=== PATIENT | female | born 1930 | race Caucasian/White ===

== ENCOUNTER 2018-10-17 17:45 | Inpatient (IN) ==
[2018-10-18] MEDS ORDERED: Naloxone 0.4 MG/ML INJ IVP PRN (00:35)
[2018-10-18] MEDS ORDERED: 0.9 % Sodium Chloride 1,000 ML IVC SCH (00:45)
--- NOTE | 2018-10-18 01:23 | Internal Med History&Physical ---
Date of Encounter: 10/18/18 Time of Encounter: 01:06 Internal Medicine - H&P: HPI Chief complaint: AMS History of present illness: Ms. Stevens is a 88 year old female with a history of degenerative disc disease status post 5 lower back surgeries, hypertension, mitral valve prolapse, osteoarthritis, asthma, lumbar spondylosis, and worsening dementia who was initially taken to [facility] by family due to cough and concern for pneumonia. Workup at [place] revealed a white blood cell count of 1.9 on elevated troponin of 0.09 and BNP of 163. Chest x-ray showed bilateral small pleural effusions and bilateral airspace disease right greater than left. EKG was performed which shows no T-wave or ST abnormalities. The EKG did read as atrial fibrillation, however upon my review there are distinct P waves noted. Patient was given Rocephin and azithromycin. . CT scan of the head was performed which showed no acute intracranial abnormalities. Patient was transferred here for further evaluation. On my assessment patient was hemodynamically stable. She had a low-grade fever 100.2. Given the patient's dementia I was unable to obtain any history from her. However patient clinically does not look septic. Past Med Surg Social Fam HX - Past Medical History Medical history: dementia, hypertension, other Additional medical history: OSTEOARTHRITIS Psychiatric history: no psych history - Past Surgical History Surgical History: hysterectomy, orthopedic, other Additional surgical history: BACK SURGERY. RIGHT KNEE REPLACEMENT - Social History Smoking Status: Never smoker Smokeless Tobacco Status: No Alcohol use: none Drug use: none Internal Medicine - H&P: Meds Acetaminophen [Tylenol] 500 mg PO Q6HR PRN 12/27/15 [History] Cholecalciferol (D-3) [Vitamin D] 1,000 unit PO DAILY 12/27/15 [History] Ferrous Sulfate 65 mg PO DAILY 12/27/15 [History] Furosemide [Lasix] 40 mg PO DAILY 12/27/15 [History] Glucosamn/Cond[place]n/C/Mn/[place] [[facility]vs Glucosamine Chondroitin Tb] 1 tab PO DAILY 12/27/15 [History] Montelukast [Singulair] 10 mg PO DAILY 12/27/15 [History] Mv-Min/FA/Vit K/Lycop/Lut/Zeax [Ocuvite Eye + Multi Tablet] 1 tab PO DAILY 12/27/15 [History] Metoprolol [Lopressor] 25 mg PO BID 02/25/18 [History] Tizanidine HCl [Zanaflex] 2 mg PO TID 02/25/18 [History] amLODIPine [Norvasc] 2.5 mg PO DAILY 02/25/18 [History] Cyanocobalamin (Vitamin B-12) [Vitamin B12] 1,000 mcg PO DAILY #30 tab 05/18/18 [Rx] Folic Acid 1 mg PO DAILY #30 tablet 05/18/18 [Rx] Memantine [Namenda] 5 mg PO HS 07/30/18 [History] Ascorbic Acid [Vitamin C] 1,000 mg PO DAILY 10/16/18 [History] Tramadol HCl [Ultram] 50 mg PO BID PRN 10/16/18 [History] Amoxicillin/Clavulanate [Augmentin] 875 mg PO BIDWM #20 tablet 10/17/18 [Rx] Allergy/AdvReac Type Severity Reaction Status Date / Time aspirin Allergy Rash Verified 10/17/18 15:22 codeine Allergy See Verified 10/17/18 17:38 Comments Sulfa (Sulfonamide Allergy See Verified 10/17/18 15:22 Antibiotics) Comments All Systems PM: A 10-system review of systems was performed and is negative for pertinent findings except as documented above in the HPI. - Constitutional Constitutional: no chills, no fever(s), no night sweats - EENT Eyes: no change in vision, no discharge, no pain, no photophobia Ears: no ear discharge, no ear pain, no tinnitus Nose, mouth and throat: no dysphagia, no nasal discharge, no neck pain, no sore throat - Cardiovascular Cardiovascular ROS IM: no chest pain, no diaphoresis, no dyspnea, no lightheadedness, no palpitations, no syncope - Respiratory Respiratory: no cough, no dyspnea, no wheezing, no excessive phlegm production - Gastrointestinal Gastrointestinal: no abdominal pain, no diarrhea, no hematemesis, no hematochezia, no melena, no nausea, no vomiting - Genitourinary Genitourinary: no change in urinary stream, no dysuria, no flank pain, no hematuria - Musculoskeletal Musculoskeletal ROS IM: no numbness, no tingling - Integumentary Integumentary IM: no rash, no unusual bruising - Neurological Neurological ROS: no confusion, no convulsions, no focal weakness, no numbness, no tingling, no tremor(s) - Hematologic/Lymphatic Hematologic/Lymphatic: no easy bruising - Constitutional Vitals: Temp Pulse Resp BP Pulse Ox 100.2 F H 83 15 117/67 93 10/17/18 22:36 10/17/18 22:36 10/17/18 22:36 10/17/18 22:36 10/17/18 22:36 Exam: General: Alert and oriented 1 Skin:Normal color, no rash, no lesions. HEENT:EOM, pupils equal, round and reactive. Cardiovascular:Normal S1 & S2, no rubs, murmurs or gallops. No JVD. Pulse regular. Lungs:Normal breath sounds, no wheezes or crackles. Abdomen:Soft, non-tender, no rigidity. Extremities:No deformity, no edema or tenderness, no joint swelling or clubbing. Neurological:Normal cognition and motor skills. Pulses:Carotid and radial pulses normal +2. Rest of the physical exam is non contributory Internal Med - H&P Results - Labs CBC & Chem 7: 10/18/18 02:11 10/18/18 02:11 - Assessment and Plan (1) Pneumonia Current Visit: No Status: Acute Assessment and plan: Patient presenting with cough concerning for pneumonia. Found to be leukopenic with a white count of 1.9. Chest x-ray shows small bilateral pleural effusions and bibasilar airspace disease right greater than left. Patient received Rocephin and azithromycin prior to transfer. Clinically patient does not look septic or in any respiratory distress. -Continue O2 support -Continue with antibiotics for community acquired pneumonia -Follow-up blood cultures and urine antigens Qualifiers: Pneumonia type: due to unspecified organism Lung location: lower lobe of lung Qualified Code(s): J18.1 - Lobar pneumonia, unspecified organism (2) Elevated troponin I level Current Visit: No Status: Acute Assessment and plan: Elevated troponin of 0.09. No reports of chest pain. Review of EKG shows atrial fibrillation with a rate of 89, however, distinct P waves are present. No T-wave or ST abnormalities. Possibly demand ischemia in the setting of pneumonia. -Telemetry -Trend troponin -Consider echocardiogram (3) Anemia Current Visit: No Status: Acute Assessment and plan: Normocytic anemia. Appears to be chronic and at baseline. We will monitor for now. Qualifiers: Chronic kidney disease stage: unspecified stage Qualified Code(s): N18.9 - Chronic kidney disease, unspecified; D63.1 - Anemia in chronic kidney disease (4) Leukopenia Current Visit: Yes Status: Acute Assessment and plan: Patient presenting with a leukopenia of 1.9 with absolute neutrophil count of 152. Her monocytes are 66.5%. Remaining lines or relatively stable. Patient is followed by oncology for her anemia and is being worked up for MGUS/ Smo ldering/ Myeloma spectrum of disease. At this time patient does not appear septic. She has a low-grade fever. This may be secondary to pneumonia as she does have 2% bands though cannot exclude hematological a bone marrow disorder. Given that she is clinically stable, recommend continued treatment for pneumonia and monitoring for signs of improvement. Qualifiers: Neutropenia type: unspecified Qualified Code(s): D70.9 - Neutropenia, unspe cified (5) Dementia Current Visit: Yes Status: Acute Assessment and plan: Continue medical management with her home medications. Qualifiers: Dementia behavioral disturbance: without behavioral disturbance Qualified Code(s): F03.90 - Unspecified dementia without behavioral disturbance (6) DVT prophylaxis Current Visit: Yes Status: Acute Assessment and plan: Subcutaneous heparin - Time Spent With Patient Total time spent is greater than 50% in coordination of care (as documented) at patient's floor/unit and/or counseling patient:
[2018-10-18 02:22] LABS: White Blood Count 2.4 K/mcL (4.3-11.1)
[2018-10-18 02:23] LABS: Basophils % 0.8 %; Eosinophils # 0.1 K/mcL (0.0-0.6); Hematocrit 26.7 % (35.3-44.9); Hemoglobin 9.6 g/dL (11.5-15.4); Immature Granulocytes % 0.8 % (0-4); Lymphocytes # 0.7 K/mcL (0.6-4.6); Lymphocytes % 28.3 %; Mean Corpuscular Hemoglobin 32.7 pg (28.0-33.3); Mean Corpuscular Volume 90.8 fL (83.0-100.0); Mean Platelet Volume 10.4 fL (9.4-12.4); Monocytes # 1.3 K/mcL (0.0-1.3); Monocytes % 54.2 %; Neutrophils # 0.3 K/mcL (1.6-8.9); Platelet Count 298 K/mcL (140-400); Red Blood Count 2.94 M/mcL (3.82-4.97); Red Cell Distribution Width 14.3 % (11.5-14.5); Segmented Neutrophils % 10.9 %
[2018-10-18 02:44] LABS: Platelet Estimate Normal (Normal)
[2018-10-18 02:48] LABS: Alanine Aminotransferase 7 Units/L (7-52); Albumin 3.5 g/dL (3.5-5.7); Albumin/Globulin Ratio 1.5 (1.1-2.2); Alkaline Phosphatase 61 Units/L (34-104); Aspartate Amino Transferase 11 Units/L (13-39); BUN/Creatinine Ratio 21 (6-26); Bilirubin,Total 1.2 mg/dL (0.3-1.0); Blood Urea Nitrogen 15 mg/dL (8-23); Calcium 8.7 mg/dL (8.6-10.3); Carbon Dioxide 29 mEq/L (23-29); Chloride 102 mEq/L (98-107); Globulin 2.3 g/dL (2.4-3.5); Glucose 110 mg/dL (70-105); Osmolality,Calculated 281 (280-300); Potassium 3.3 mEq/L (3.5-5.1); Sodium 135 mEq/L (136-145); Total Protein 5.8 g/dL (6.4-8.9); eGFR For African Americans > 60 (> 60); eGFR For Non-African Americans > 60 (> 60)
[2018-10-18 03:10] LABS: Troponin I 0.07 ng/mL (< 0.04)
--- NOTE | 2018-10-18 08:01 | Event Note ---
Date of Encounter: 10/18/18 Time of Encounter: 08:00 Seen and assessed and I agree with plan per night team Plan Pneumonia. Continue antibiotics. Follow cultures
[2018-10-18] MEDS: Potassium Chloride Elixir 20 MEQ/15 ML UDC PO SCH ×2 (08:40→14:17)
[2018-10-18] MEDS ORDERED: cefTRIAXone 1,000 MG in Water for inj. (sterile) 20 ML 10 ML IVP SCH (21:00)
[2018-10-18] MEDS ORDERED: Azithromycin 500 MG in D5% in Water 250 ML IVPB SCH (23:00)
--- NOTE | 2018-10-19 07:53 | Internal Med Progress Note ---
Hospitalist Progress Note - Encounter Date of Encounter: 10/19/18 Time of Encounter: 07:00 - Subjective Interval History: No acute events overnight - Exam Vitals: Temp Pulse Resp BP Pulse Ox 98.7 F 68 16 160/80 98 10/19/18 07:03 10/19/18 07:03 10/19/18 07:03 10/19/18 07:03 10/19/18 07:03 Exam: General: Alert and oriented 1 Skin:Normal color, no rash, no lesions. HEENT:EOM, pupils equal, round and reactive. Cardiovascular:Normal S1 & S2, no rubs, murmurs or gallops. No JVD. Pulse regular. Lungs:Normal breath sounds, no wheezes or crackles. Abdomen:Soft, non-tender, no rigidity. Extremities:No deformity, no edema or tenderness, no joint swelling or clubbing. Neurological:Normal cognition and motor skills. Pulses:Carotid and radial pulses normal +2. Rest of the physical exam is non contributory - Assessment and Plan (1) Pneumonia Current Visit: Yes Status: Acute Assessment and Plan: Patient presenting with cough concerning for pneumonia and chest xray with bilateral airspace disease and small pleural effusions Continue on ceftriaxone and azithromycin. Follow cultures (2) Chronic diastolic (congestive) heart failure Current Visit: Yes Status: Acute Assessment and Plan: No acute worsening. Resume PO lasix (3) Anemia Current Visit: Yes Status: Acute Assessment and Plan: Normocytic anemia. Appears to be chronic and at baseline. We will monitor for now. (4) Elevated troponin I level Current Visit: Yes Status: Acute Assessment and Plan: Likely secondary to demand ischemia. No acute intervention (5) Leukopenia Current Visit: Yes Status: Acute Assessment and Plan: Patient presenting with a leukopenia of 1.9 with absolute neutrophil count of 152. Possibly secondary to infection vs multiple myeloma/MGUS being follwed by oncology Continue antibiotics. (6) Dementia Current Visit: Yes Status: Acute Assessment and Plan: Continue medical management with her home medications. (7) DVT prophylaxis Current Visit: Yes Status: Acute Assessment and Plan: Subcutaneous heparin - Time Spent with Patient Total time spent is greater than 50% in coordination of care (as documented) at patient's floor/unit and/or counseling patient: Internal Medicine: Result - Labs CBC & Chem 7: 10/19/18 10:03 10/19/18 10:03 - Impressions Impressions Echocardiogram 10/18/18 02:29 Impressions: LVEF 45-50%. Moderate left ventricular diastolic dysfunction. Mild concentric left ventricular hypertrophy. Moderately dilated left atrium. Normal right ventricular structure and function. 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 Mild-moderate eccentric mitral regurgitation, with posteriorly directed jet Mild-moderate tricuspid regurgitation. Moderate pulmonary hypertension.Estimated RVSP is 49 mmHg. Left Ventricular Wall Motion: Rest Echo Findings The apex, apical inferior, mid inferior, basal inferior, apical anterior, mid anterior, basal anterior, apical septal, mid inferior septal, basal inferior septal, apical lateral, mid anterior lateral, basal anterior lateral, mid anterior septal, mid inferior lateral, basal anterior septal and basal inferior lateral melton were hypokinetic. Findings: Study Quality * Technically sub-optimal due to clinical status. ECG Findings * Sinus rhythm with PACs. Left Ventricle * LVEF 45-50%. * Moderate left ventricular diastolic dysfunction. * Mild concentric left ventricular hypertrophy. Right Ventricle * Normal right ventricular structure and function. Left Atrium * Moderately dilated left atrium. Right Atrium * Normal right atrial size. Aortic Valve * Trileaflet aortic valve. * Normal aortic valve structure. * No aortic regurgitation. * No aortic stenosis. Mitral Valve * Mild-moderate eccentric mitral regurgitation, with posteriorly directed jet. 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 * No mitral stenosis. Tricuspid Valve * Mild-moderate tricuspid regurgitation. * Moderate pulmonary hypertension.Estimated RVSP is 49 mmHg. * Estimated RVSP is 49 mmHg. * Estimated RA pressure is 10 mmHg. Pulmonic Valve * Mild pulmonic regurgitation. Aorta * The aortic root is mildly dilated. Pericardium * The pericardium appears normal. IVC * The IVC is dilated. Pulmonary Artery * Normal visualized portions of the main pulmonary artery. Consult Discharge Plan - Plan Referrals: NONE,PCP [Primary Care Provider] - (1) Pneumonia Qualifiers: Pneumonia type: due to unspecified organism Lung location: lower lobe of lung Qualified Code(s): J18.1 - Lobar pneumonia, unspecified organism (3) Anemia Qualifiers: Chronic kidney disease stage: unspecified stage Qualified Code(s): N18.9 - Chronic kidney disease, unspecified; D63.1 - Anemia in chronic kidney disease (5) Leukopenia Qualifiers: Neutropenia type: unspecified Qualified Code(s): D70.9 - Neutropenia, unspecified (6) Dementia Qualifiers: Dementia behavioral disturbance: without behavioral disturbance Qualified Code(s): F03.90 - Unspecified dementia without behavioral disturbance
[2018-10-19] MEDS ORDERED: Azithromycin 500 MG in D5% in Water 250 ML IVPB SCH (09:00)
[2018-10-19] MEDS: Furosemide 40 MG TABLET PO SCH (09:48)
[2018-10-19] MEDS: cefTRIAXone 1,000 MG in Water for inj. (sterile) 20 ML 10 ML IVP SCH (09:48)
[2018-10-19] MEDS: amLODIPine 5 MG TABLET PO SCH (09:48)
[2018-10-19 10:42] LABS: Eosinophils # 0.1 K/mcL (0.0-0.6); Hematocrit 27.3 % (35.3-44.9); Hemoglobin 9.7 g/dL (11.5-15.4); Mean Corpuscular HGB Conc 35.5 g/dL (31.6-35.5); Mean Corpuscular Hemoglobin 32.9 pg (28.0-33.3); Mean Corpuscular Volume 92.5 fL (83.0-100.0); Mean Platelet Volume 10.2 fL (9.4-12.4); Platelet Count 332 K/mcL (140-400); Red Blood Count 2.95 M/mcL (3.82-4.97); Red Cell Distribution Width 14.3 % (11.5-14.5); White Blood Count 3.4 K/mcL (4.3-11.1)
[2018-10-19 11:02] LABS: BUN/Creatinine Ratio 15 (6-26); Blood Urea Nitrogen 12 mg/dL (8-23); Carbon Dioxide 29 mEq/L (23-29); Chloride 105 mEq/L (98-107); Glucose 100 mg/dL (70-105); Osmolality,Calculated 294 (280-300); Phosphorous 2.7 mg/dL (2.7-4.5); Potassium 3.7 mEq/L (3.5-5.1); Sodium 142 mEq/L (136-145); eGFR For African Americans > 60 (> 60); eGFR For Non-African Americans > 60 (> 60)
[2018-10-19 11:27] LABS: Lymphocytes # 0.5 K/mcL (0.6-4.6); Monocytes # 1.2 K/mcL (0.0-1.3); Neutrophils # 1.7 K/mcL (1.6-8.9); Platelet Estimate Normal (Normal)
[2018-10-19 11:28] LABS: Anisocytosis 1+ (Not Present); Polychromasia 1+ (Not Present)
--- NOTE | 2018-10-20 07:39 | Discharge Summary ---
Date of Encounter: 10/20/18 Time of Encounter: 07:30 - Discharge Diagnosis (1) Pneumonia Priority: Primary Status: Acute Assessment and Plan: 88 year old female with a history of degenerative disc disease status post 5 lower back surgeries, hypertension, mitral valve prolapse, osteoarthritis, asthma, lumbar spondylosis, and worsening dementia who was initially taken to [facility] by family due to cough and concern for pneumonia. Workup at [place] revealed a white blood cell count of 1.9 on elevated troponin of 0.09 and BNP of 163. Chest x-ray showed bilateral small pleural effusions and bilateral airspace disease right greater than left. EKG was performed which shows no T- wave or ST abnormalities She was assessed with pneumonia. Chest xray showed bilateral airspace disease and small pleural effusions. She completed a course of ceftriaxone and azithromycin and improved. She was discharged to the senior care in a stable condition. 35 minutes was spent discharging this patient Qualifiers: Pneumonia type: due to unspecified organism Lung location: lower lobe of lung Qualified Code(s): J18.1 - Lobar pneumonia, unspecified organism (2) Chronic diastolic (congestive) heart failure Priority: Primary Status: Acute (3) Anemia Priority: Primary Status: Acute Qualifiers: Chronic kidney disease stage: unspecified stage Qualified Code(s): N18.9 - Chronic kidney disease, unspecified; D63.1 - Anemia in chronic kidney disease (4) Elevated troponin I level Priority: Primary Status: Acute (5) Leukopenia Priority: Primary Status: Acute Qualifiers: Neutropenia type: unspecified Qualified Code(s): D70.9 - Neutropenia, unspecified (6) Dementia Priority: Primary Status: Acute Qualifiers: Dementia behavioral disturbance: without behavioral disturbance Qualified Code(s): F03.90 - Unspecified dementia without behavioral disturbance (7) DVT prophylaxis Priority: Primary Status: Acute Hospital course: Ms. Stevens is a 88 year old female - Time Spent with Patient Total time spent providing and/or coordinating discharge services: - Discharge Medications Prescriptions: Continued Acetaminophen [Tylenol] 500 mg PO Q6HR PRN PRN Reason: Pain Cholecalciferol (D-3) [Vitamin D] 1,000 unit PO DAILY Ferrous Sulfate 65 mg PO DAILY Furosemide [Lasix] 40 mg PO DAILY Glucosamn/Condroitn/C/Mn/[place] [Cvs Glucosamine Chondroitin Tb] 1 tab PO DAILY Montelukast [Singulair] 10 mg PO DAILY Mv-Min/FA/Vit K/Lycop/Lut/Zeax [Ocuvite Eye Plus Multi Tablet] 1 tab PO DAILY Tizanidine HCl [Zanaflex] 2 mg PO TID amLODIPine [Norvasc] 2.5 mg PO DAILY Folic Acid 1 mg PO DAILY #30 tablet Cyanocobalamin (Vitamin B-12) [Vitamin B12] 1,000 mcg PO DAILY #30 tab Memantine [Namenda] 5 mg PO HS Metoprolol Succinate [Toprol Xl] 12.5 mg PO DAILY Diclofenac Sodium [Voltaren] 1 applic TP QID PRN PRN Reason: Pain Tramadol HCl [Ultram] 50 mg PO BID PRN PRN Reason: Pain Ascorbic Acid [Vitamin C] 1,000 mg PO DAILY Amoxicillin/Clavulanate [Augmentin] 875 mg PO BIDWM #20 tablet Home Medications: Acetaminophen [Tylenol] 500 mg PO Q6HR PRN 12/27/15 [History] Cholecalciferol (D-3) [Vitamin D] 1,000 unit PO DAILY 12/27/15 [History] Ferrous Sulfate 65 mg PO DAILY 12/27/15 [History] Furosemide [Lasix] 40 mg PO DAILY 12/27/15 [History] Glucosamn/Cond[place]n/C/Mn/[place] [[facility]vs Glucosamine Chondroitin Tb] 1 tab PO DAILY 12/27/15 [History] Montelukast [Singulair] 10 mg PO DAILY 12/27/15 [History] Mv-Min/FA/Vit K/Lycop/Lut/Zeax [Ocuvite Eye Plus Multi Tablet] 1 tab PO DAILY 12/27/15 [History] Tizanidine HCl [Zanaflex] 2 mg PO TID 02/25/18 [History] amLODIPine [Norvasc] 2.5 mg PO DAILY 02/25/18 [History] Cyanocobalamin (Vitamin B-12) [Vitamin B12] 1,000 mcg PO DAILY #30 tab 05/18/18 [Rx] Folic Acid 1 mg PO DAILY #30 tablet 05/18/18 [Rx] Memantine [Namenda] 5 mg PO HS 07/30/18 [History] Ascorbic Acid [Vitamin C] 1,000 mg PO DAILY 10/16/18 [History] Tramadol HCl [Ultram] 50 mg PO BID PRN 10/16/18 [History] Amoxicillin/Clavulanate [Augmentin] 875 mg PO BIDWM #20 tablet 10/17/18 [Rx] Diclofenac Sodium [Voltaren] 1 applic TP QID PRN 10/19/18 [History] Metoprolol Succinate [Toprol Xl] 12.5 mg PO DAILY 10/19/18 [History] Allergies/Adverse Reactions: Allergy/AdvReac Type Severity Reaction Status Date / Time aspirin Allergy Rash Verified 10/17/18 15:22 codeine Allergy See Verified 10/17/18 17:38 Comments Sulfa (Sulfonamide Allergy See Verified 10/17/18 15:22 Antibiotics) Comments Date of admission: 10/18/18 14:27 Primary care physician: PCP NONE Consults: 10/18/18 01:01 Consult to Nurse Navigator [CONS] Routine Comment: 10/20/18 07:36 Consult to Physical Therapy [CONS] Routine Comment: Evaluate, develop and implement POC Reason for Consult: weakness Does patient have active BEDREST order?: No Is patient medically & hemodynamically stable?: Yes Patient assessed for mobility or mobilized this visit?: No - Constitutional Vitals: Temp Pulse Resp BP Pulse Ox 98.2 F 101 13 145/54 94 10/20/18 00:17 10/20/18 03:33 10/20/18 03:33 10/20/18 03:33 10/20/18 03:33 Exam: General: Alert and oriented 1 Skin:Normal color, no rash, no lesions. HEENT:EOM, pupils equal, round and reactive. Cardiovascular:Normal S1 & S2, no rubs, murmurs or gallops. No JVD. Pulse regular. Lungs:Normal breath sounds, no wheezes or crackles. Abdomen:Soft, non-tender, no rigidity. Extremities:No deformity, no edema or tenderness, no joint swelling or clubbing. Neurological:Normal cognition and motor skills. Pulses:Carotid and radial pulses normal +2. Rest of the physical exam is non contributory - Patient Status Disposition: Home, Self-Care Condition: Good - Discharge Instructions Instructions: Urinary Tract Infection in Women (DC) Follow Up With: NONE,PCP [Primary Care Provider] - Rodney Walker DO [Partnered Physician] - 10/26/18 11:30 am (Please follow up as schedule....)
--- NOTE | 2018-10-20 07:40 | Physician Discharge Referral ---
- Diagnosis (1) Pneumonia Priority: Primary Status: Acute (2) Chronic diastolic (congestive) heart failure Priority: Primary Status: Acute (3) Anemia Priority: Primary Status: Acute (4) Elevated troponin I level Priority: Primary Status: Acute (5) Leukopenia Priority: Primary Status: Acute (6) Dementia Priority: Primary Status: Acute (7) DVT prophylaxis Priority: Primary Status: Acute - Transfer Medications Home Medications: Acetaminophen [Tylenol] 500 mg PO Q6HR PRN 12/27/15 [History] Cholecalciferol (D-3) [Vitamin D] 1,000 unit PO DAILY 12/27/15 [History] Ferrous Sulfate 65 mg PO DAILY 12/27/15 [History] Furosemide [Lasix] 40 mg PO DAILY 12/27/15 [History] Glucosamn/Condroitn/C/Mn/[place] [Cvs Glucosamine Chondroitin Tb] 1 tab PO DAILY 12/27/15 [History] Montelukast [Singulair] 10 mg PO DAILY 12/27/15 [History] Mv-Min/FA/Vit K/Lycop/Lut/Zeax [Ocuvite Eye Plus Multi Tablet] 1 tab PO DAILY 12/27/15 [History] Tizanidine HCl [Zanaflex] 2 mg PO TID 02/25/18 [History] amLODIPine [Norvasc] 2.5 mg PO DAILY 02/25/18 [History] Cyanocobalamin (Vitamin B-12) [Vitamin B12] 1,000 mcg PO DAILY #30 tab 05/18/18 [Rx] Folic Acid 1 mg PO DAILY #30 tablet 05/18/18 [Rx] Memantine [Namenda] 5 mg PO HS 07/30/18 [History] Ascorbic Acid [Vitamin C] 1,000 mg PO DAILY 10/16/18 [History] Tramadol HCl [Ultram] 50 mg PO BID PRN 10/16/18 [History] Amoxicillin/Clavulanate [Augmentin] 875 mg PO BIDWM #20 tablet 10/17/18 [Rx] Diclofenac Sodium [Voltaren] 1 applic TP QID PRN 10/19/18 [History] Metoprolol Succinate [Toprol Xl] 12.5 mg PO DAILY 10/19/18 [History] Allergies/Adverse Reactions: Allergy/AdvReac Type Severity Reaction Status Date / Time aspirin Allergy Rash Verified 10/17/18 15:22 codeine Allergy See Verified 10/17/18 17:38 Comments Sulfa (Sulfonamide Allergy See Verified 10/17/18 15:22 Antibiotics) Comments - Respiratory Orders Smoking Cessation: Smoking cessation has been advised. For more information, call the [place] Tobacco Quit Line at 4-849-HPFR-NOW. - Mobility Orders Ambulate - Rehabiliation Orders Rehab Orders: Evaluation for Physical Therapy CERTIFICATION: I certify that the transfer of the above named patient to an Extended Care Facility is necessary for the continuing treatment of the diagnosis listed. The above information is true and accurate reflection of patient's current condition. Confidential - Redisclosure prohibited without a patient's written consent.
[2018-10-20 09:14] LABS: Basophils # 0.1 K/mcL (0.0-0.2); Eosinophils # 0.2 K/mcL (0.0-0.6); Eosinophils % 2.6 %; Hematocrit 31.8 % (35.3-44.9); Hemoglobin 11.2 g/dL (11.5-15.4); Immature Granulocytes % 2.6 % (0-4); Lymphocytes # 0.7 K/mcL (0.6-4.6); Lymphocytes % 11.5 %; Mean Corpuscular HGB Conc 35.2 g/dL (31.6-35.5); Mean Corpuscular Hemoglobin 32.6 pg (28.0-33.3); Mean Corpuscular Volume 92.4 fL (83.0-100.0); Mean Platelet Volume 10.4 fL (9.4-12.4); Monocytes # 1.1 K/mcL (0.0-1.3); Monocytes % 19.3 %; Neutrophils # 3.7 K/mcL (1.6-8.9); Platelet Count 414 K/mcL (140-400); Red Blood Count 3.44 M/mcL (3.82-4.97); Red Cell Distribution Width 14.3 % (11.5-14.5)
[2018-10-20 09:24] LABS: White Blood Count 5.8 K/mcL (4.3-11.1)
[2018-10-20 09:28] LABS: BUN/Creatinine Ratio 15 (6-26); Blood Urea Nitrogen 10 mg/dL (8-23); Calcium 9.1 mg/dL (8.6-10.3); Carbon Dioxide 28 mEq/L (23-29); Chloride 104 mEq/L (98-107); Glucose 115 mg/dL (70-105); Magnesium 2.1 mg/dL (1.6-2.6); Osmolality,Calculated 292 (280-300); Phosphorous 3.5 mg/dL (2.7-4.5); Potassium 3.4 mEq/L (3.5-5.1); Sodium 141 mEq/L (136-145); eGFR For African Americans > 60 (> 60); eGFR For Non-African Americans > 60 (> 60)
[2018-10-20] MEDS ORDERED: Azithromycin 250 MG TABLET PO SCH (09:30)
[2018-10-20 09:33] LABS: Platelet Estimate Normal (Normal)
[2018-10-20] MEDS: cefTRIAXone 1,000 MG in Water for inj. (sterile) 20 ML 10 ML IVP SCH ×2 (10:06→10:32)
[2018-10-20] MEDS: amLODIPine 5 MG TABLET PO SCH (10:07)
[2018-10-20] MEDS: Furosemide 40 MG TABLET PO SCH (10:07)
[2018-10-20] MEDS ORDERED: levoFLOXacin 750 MG TABLET PO ONE (10:21)
[2018-10-20 11:44] VITALS: BP 123/79
== END 2018-10-20 12:22 | disposition home or self-care (01) | DRG 194 ==
LOC: 2ANU
PROVIDERS: ADMIT Internal Medicine Nephrology; ATTEND Internal Medicine Nephrology

== ENCOUNTER 2019-06-23 12:03 | Inpatient (IN) ==
[2019-06-23] MEDS ORDERED: Naloxone 0.4 MG/ML INJ IVP PRN (14:28)
[2019-06-23] MEDS ORDERED: Ondansetron ODT 4 MG TAB.RAPDIS SL PRN (14:28)
[2019-06-23 15:05] LABS: Basophils % 0.1 %; Hematocrit 27.2 % (35.3-44.9); Hemoglobin 9.9 g/dL (11.5-15.4); INR 1.2; Immature Granulocytes % 0.8 % (0-4); Lymphocytes # 0.4 K/mcL (0.6-4.6); Mean Corpuscular HGB Conc 36.4 g/dL (31.6-35.5); Mean Corpuscular Hemoglobin 33.4 pg (28.0-33.3); Mean Corpuscular Volume 91.9 fL (83.0-100.0); Mean Platelet Volume 10.6 fL (9.4-12.4); Monocytes % 8.1 %; Neutrophils # 11.3 K/mcL (1.6-8.9); Platelet Count 328 K/mcL (140-400); Prothrombin Time 13.4 Seconds (9.4-12.1); Red Blood Count 2.96 M/mcL (3.82-4.97); Red Cell Distribution Width 16.2 % (11.5-14.5); White Blood Count 12.8 K/mcL (4.3-11.1)
[2019-06-23 15:07] LABS: Activated Partial Thrombo Time 31.6 Seconds (26.0-36.0)
[2019-06-23 15:24] LABS: Troponin I 0.83 ng/mL (< 0.04)
[2019-06-23 15:36] LABS: Alanine Aminotransferase 23 Units/L (7-52); Albumin 3.8 g/dL (3.5-5.7); Albumin/Globulin Ratio 1.5 (1.1-2.2); Alkaline Phosphatase 94 Units/L (34-104); Aspartate Amino Transferase 33 Units/L (13-39); BUN/Creatinine Ratio 28 (6-26); Bilirubin,Total 0.8 mg/dL (0.3-1.0); Blood Urea Nitrogen 21 mg/dL (8-23); Calcium 9.4 mg/dL (8.6-10.3); Carbon Dioxide 23 mEq/L (23-29); Chloride 111 mEq/L (98-107); Globulin 2.6 g/dL (2.4-3.5); Glucose 113 mg/dL (70-105); Magnesium 2.1 mg/dL (1.6-2.6); Osmolality,Calculated 302 (280-300); Potassium 4.2 mEq/L (3.5-5.1); Sodium 144 mEq/L (136-145); Total Protein 6.4 g/dL (6.4-8.9); eGFR For African Americans > 60 (> 60); eGFR For Non-African Americans > 60 (> 60)
[2019-06-23] MEDS ORDERED: Metoprolol XL (24 HR) Succ 25 MG TAB.ER.24H PO STA (15:38)
[2019-06-23] MEDS ORDERED: Acetaminophen 325 MG TABLET PO PRN (15:43)
[2019-06-23 16:47] LABS: Thyroid Stimulating Hormone 0.724 mcIU/mL (0.340-5.600)
[2019-06-23] MEDS: *HR* Enoxaparin 60 MG/0.6 ML SYRINGE SQ SCH (18:22)
[2019-06-23] MEDS: DilTIAZem 50 MG in 0.9 % Sodium Chloride 40 ML IVC SCH (18:25)
[2019-06-23] MEDS: Ipratropium Neb 0.5 MG NEBULIZER IH SCH ×3 (19:37→23:58)
[2019-06-23] MEDS: Acetylcysteine 10% 2 ML INHSOL IH SCH ×2 (19:37→19:57)
[2019-06-23] MEDS ORDERED: *HR* Metoprolol 5 MG/5 ML VIAL IVP ONE (21:23)
[2019-06-24] MEDS: Ipratropium Neb 0.5 MG NEBULIZER IH SCH ×6 (03:56→23:44)
[2019-06-24] MEDS: Acetylcysteine 10% 2 ML INHSOL IH SCH ×4 (03:56→19:37)
[2019-06-24 03:58] LABS: Hematocrit 27.9 % (35.3-44.9); Hemoglobin 9.8 g/dL (11.5-15.4); Mean Corpuscular HGB Conc 35.1 g/dL (31.6-35.5); Mean Corpuscular Hemoglobin 33.1 pg (28.0-33.3); Mean Corpuscular Volume 94.3 fL (83.0-100.0); Mean Platelet Volume 10.3 fL (9.4-12.4); Platelet Count 341 K/mcL (140-400); Red Blood Count 2.96 M/mcL (3.82-4.97); Red Cell Distribution Width 16.4 % (11.5-14.5); White Blood Count 10.6 K/mcL (4.3-11.1)
[2019-06-24 04:18] LABS: BUN/Creatinine Ratio 30 (6-26); Blood Urea Nitrogen 24 mg/dL (8-23); Calcium 9.2 mg/dL (8.6-10.3); Carbon Dioxide 24 mEq/L (23-29); Chloride 110 mEq/L (98-107); Glucose 113 mg/dL (70-105); Osmolality,Calculated 303 (280-300); Sodium 144 mEq/L (136-145); eGFR For African Americans > 60 (> 60); eGFR For Non-African Americans > 60 (> 60)
[2019-06-24] MEDS ORDERED: *HR* Metoprolol 5 MG/5 ML VIAL IVP ONE (04:29)
[2019-06-24] MEDS: DilTIAZem 50 MG in 0.9 % Sodium Chloride 40 ML IVC SCH ×2 (04:41→13:43)
[2019-06-24] MEDS: *HR* Enoxaparin 60 MG/0.6 ML SYRINGE SQ SCH ×2 (06:47→16:47)
[2019-06-24] MEDS: Azithromycin 500 MG in 0.9 % Sodium Chloride 250 ML IVPB SCH (08:04)
[2019-06-24] MEDS: cefTRIAXone 1,000 MG in Water for inj. (sterile) 10 ML IVP SCH (08:04)
[2019-06-24] MEDS: predniSONE 20 MG TABLET PO SCH (08:04)
[2019-06-24] MEDS ORDERED: Metoprolol XL (24 HR) Succ 50 MG TAB.ER.24H PO SCH (09:00)
[2019-06-24] MEDS ORDERED: DilTIAZem 50 MG in 0.9 % Sodium Chloride 40 ML IVC SCH (11:15)
[2019-06-24] MEDS ORDERED: Furosemide 40 MG in 0.9 % Sodium Chloride 50 ML IV SCH (11:30)
[2019-06-24] MEDS ORDERED: Isovue-370 500 ML BOTTLE IVP ONE (12:44)
[2019-06-24] MEDS: Furosemide 40 MG in 0.9 % Sodium Chloride 50 ML IV SCH (13:43)
[2019-06-24] MEDS: Metoprolol XL (24 HR) Succ 50 MG TAB.ER.24H PO SCH (20:37)
[2019-06-25 00:42] LABS: Hematocrit 29.2 % (35.3-44.9); Hemoglobin 10.7 g/dL (11.5-15.4); Mean Corpuscular HGB Conc 36.6 g/dL (31.6-35.5); Mean Corpuscular Hemoglobin 32.9 pg (28.0-33.3); Mean Corpuscular Volume 89.8 fL (83.0-100.0); Mean Platelet Volume 10.3 fL (9.4-12.4); Platelet Count 391 K/mcL (140-400); Red Blood Count 3.25 M/mcL (3.82-4.97); White Blood Count 10.1 K/mcL (4.3-11.1)
[2019-06-25 00:56] LABS: BUN/Creatinine Ratio 31 (6-26); Blood Urea Nitrogen 25 mg/dL (8-23); Calcium 9.6 mg/dL (8.6-10.3); Carbon Dioxide 24 mEq/L (23-29); Chloride 106 mEq/L (98-107); Glucose 126 mg/dL (70-105); Osmolality,Calculated 300 (280-300); Potassium 3.6 mEq/L (3.5-5.1); Sodium 142 mEq/L (136-145); eGFR For African Americans > 60 (> 60); eGFR For Non-African Americans > 60 (> 60)
[2019-06-25] MEDS: DilTIAZem 50 MG in 0.9 % Sodium Chloride 40 ML IVC SCH ×2 (01:42→06:16)
[2019-06-25] MEDS: Ipratropium Neb 0.5 MG NEBULIZER IH SCH ×6 (03:21→23:05)
[2019-06-25] MEDS: Acetylcysteine 10% 2 ML INHSOL IH SCH ×4 (03:21→19:51)
[2019-06-25] MEDS: *HR* Enoxaparin 60 MG/0.6 ML SYRINGE SQ SCH ×2 (05:51→17:33)
[2019-06-25] MEDS: cefTRIAXone 1,000 MG in Water for inj. (sterile) 10 ML IVP SCH (08:23)
[2019-06-25] MEDS: predniSONE 20 MG TABLET PO SCH (08:23)
[2019-06-25] MEDS: Metoprolol XL (24 HR) Succ 50 MG TAB.ER.24H PO SCH ×2 (08:23→20:14)
[2019-06-25] MEDS: Azithromycin 500 MG in 0.9 % Sodium Chloride 250 ML IVPB SCH (08:23)
[2019-06-25] MEDS: Furosemide 40 MG in 0.9 % Sodium Chloride 50 ML IV SCH (08:44)
[2019-06-26] MEDS: Ipratropium Neb 0.5 MG NEBULIZER IH SCH ×6 (03:30→23:56)
[2019-06-26] MEDS: Acetylcysteine 10% 2 ML INHSOL IH SCH ×4 (03:30→19:40)
[2019-06-26 05:31] LABS: Hematocrit 27.1 % (35.3-44.9); Hemoglobin 9.5 g/dL (11.5-15.4); Mean Corpuscular HGB Conc 35.1 g/dL (31.6-35.5); Mean Corpuscular Hemoglobin 32.5 pg (28.0-33.3); Mean Corpuscular Volume 92.8 fL (83.0-100.0); Mean Platelet Volume 10.4 fL (9.4-12.4); Platelet Count 319 K/mcL (140-400); Red Blood Count 2.92 M/mcL (3.82-4.97); Red Cell Distribution Width 15.9 % (11.5-14.5); White Blood Count 6.5 K/mcL (4.3-11.1)
[2019-06-26 05:50] LABS: BUN/Creatinine Ratio 32 (6-26); Blood Urea Nitrogen 31 mg/dL (8-23); Calcium 8.9 mg/dL (8.6-10.3); Carbon Dioxide 27 mEq/L (23-29); Chloride 104 mEq/L (98-107); Glucose 113 mg/dL (70-105); Osmolality,Calculated 307 (280-300); Sodium 145 mEq/L (136-145); eGFR For African Americans > 60 (> 60); eGFR For Non-African Americans 55 (> 60)
[2019-06-26] MEDS ORDERED: Potassium Chloride 40 MEQ, Lidocaine 1% 2 ML in 0.9 % Sodium Chloride 500 ML IVPB ONE (06:12)
[2019-06-26] MEDS: *HR* Enoxaparin 60 MG/0.6 ML SYRINGE SQ SCH ×2 (06:41→16:24)
[2019-06-26] MEDS ORDERED: Potassium Chloride Elixir 20 MEQ/15 ML UDC PO SCH (09:00)
[2019-06-26] MEDS ORDERED: Furosemide 40 MG/4 ML VIAL IVP SCH (09:00)
[2019-06-26] MEDS: Furosemide 40 MG TABLET PO SCH (10:09)
[2019-06-26] MEDS: Cyanocobalamin (B-12) 1,000 MCG TABLET PO SCH (10:09)
[2019-06-26] MEDS: Azithromycin 250 MG TABLET PO SCH (10:09)
[2019-06-26] MEDS: Cholecalciferol (D-3) 1,000 UNIT (25MCG) TABLET PO SCH (10:09)
[2019-06-26] MEDS: amLODIPine 5 MG TABLET PO SCH ×2 (10:09→11:45)
[2019-06-26] MEDS: Ascorbic Acid 500 MG TABLET PO SCH ×2 (10:09→11:20)
[2019-06-26] MEDS: Metoprolol XL (24 HR) Succ 50 MG TAB.ER.24H PO SCH ×2 (10:10→11:45)
[2019-06-26] MEDS: predniSONE 20 MG TABLET PO SCH (10:10)
[2019-06-26] MEDS: Folic Acid 1 MG TABLET PO SCH (10:10)
[2019-06-27 02:45] LABS: Hematocrit 26.8 % (35.3-44.9); Hemoglobin 9.5 g/dL (11.5-15.4); Mean Corpuscular HGB Conc 35.4 g/dL (31.6-35.5); Mean Corpuscular Hemoglobin 32.1 pg (28.0-33.3); Mean Corpuscular Volume 90.5 fL (83.0-100.0); Platelet Count 317 K/mcL (140-400); Red Blood Count 2.96 M/mcL (3.82-4.97); Red Cell Distribution Width 15.6 % (11.5-14.5); White Blood Count 6.7 K/mcL (4.3-11.1)
[2019-06-27 03:06] LABS: BUN/Creatinine Ratio 38 (6-26); Blood Urea Nitrogen 27 mg/dL (8-23); Calcium 8.8 mg/dL (8.6-10.3); Carbon Dioxide 26 mEq/L (23-29); Chloride 105 mEq/L (98-107); Glucose 101 mg/dL (70-105); Osmolality,Calculated 295 (280-300); Sodium 140 mEq/L (136-145); eGFR For African Americans > 60 (> 60); eGFR For Non-African Americans > 60 (> 60)
[2019-06-27] MEDS: Ipratropium Neb 0.5 MG NEBULIZER IH SCH ×3 (03:52→11:05)
[2019-06-27] MEDS: Acetylcysteine 10% 2 ML INHSOL IH SCH ×2 (03:52→07:40)
[2019-06-27] MEDS: *HR* Enoxaparin 60 MG/0.6 ML SYRINGE SQ SCH (06:35)
[2019-06-27 07:44] VITALS: BP 130/62
[2019-06-27] MEDS ORDERED: Potassium Chloride 40 MEQ, Lidocaine 1% 2 ML in 0.9 % Sodium Chloride 500 ML IVPB ONE (07:45)
[2019-06-27] MEDS: Cholecalciferol (D-3) 1,000 UNIT (25MCG) TABLET PO SCH (08:11)
[2019-06-27] MEDS: Azithromycin 250 MG TABLET PO SCH (08:11)
[2019-06-27] MEDS: predniSONE 20 MG TABLET PO SCH (08:11)
[2019-06-27] MEDS: Cyanocobalamin (B-12) 1,000 MCG TABLET PO SCH (08:11)
[2019-06-27] MEDS: Ascorbic Acid 500 MG TABLET PO SCH (08:11)
[2019-06-27] MEDS: amLODIPine 5 MG TABLET PO SCH (08:12)
[2019-06-27] MEDS: Furosemide 40 MG TABLET PO SCH (08:12)
[2019-06-27] MEDS: Folic Acid 1 MG TABLET PO SCH (08:12)
[2019-06-27] MEDS: Metoprolol XL (24 HR) Succ 50 MG TAB.ER.24H PO SCH (08:12)
== END 2019-06-27 12:19 | disposition home health service (06) | DRG 193 ==
LOC: 2NENU → SUATTDRO 14:04
PROVIDERS: ADMIT Family Medicine; ATTEND Family Medicine

== ENCOUNTER 2019-11-01 14:16 | Inpatient (IN) ==
[2019-11-01] MEDS ORDERED: Naloxone 0.4 MG/ML INJ IVP PRN (17:57)
[2019-11-01] MEDS ORDERED: Ondansetron 4 MG/2 ML VIAL IVP PRN (18:07)
[2019-11-01 19:26] LABS: Hematocrit 33.4 % (35.3-44.9); Hemoglobin 10.9 g/dL (11.5-15.4)
[2019-11-02] MEDS: Piperacillin/Tazobactam 3.375 GM in 0.9 % Sodium Chloride Mini Bag 100 ML IVPB SCH ×3 (00:26→15:53)
[2019-11-02 02:39] LABS: Hematocrit 33.1 % (35.3-44.9); Hemoglobin 10.7 g/dL (11.5-15.4); Mean Corpuscular HGB Conc 32.3 g/dL (31.6-35.5); Mean Corpuscular Hemoglobin 28.5 pg (28.0-33.3); Mean Corpuscular Volume 88.3 fL (83.0-100.0); Mean Platelet Volume 10.1 fL (9.4-12.4); Platelet Count 346 K/mcL (140-400); Red Blood Count 3.75 M/mcL (3.82-4.97); Red Cell Distribution Width 16.1 % (11.5-14.5); White Blood Count 9.9 K/mcL (4.3-11.1)
[2019-11-02 02:56] LABS: BUN/Creatinine Ratio 20 (6-26); Blood Urea Nitrogen 13 mg/dL (8-23); Calcium 7.8 mg/dL (8.6-10.3); Carbon Dioxide 25 mEq/L (23-29); Chloride 105 mEq/L (98-107); Glucose 112 mg/dL (70-105); Osmolality,Calculated 289 (280-300); Potassium 2.8 mEq/L (3.5-5.1); Sodium 139 mEq/L (136-145); eGFR For African Americans > 60 (> 60); eGFR For Non-African Americans > 60 (> 60)
[2019-11-02 03:31] LABS: Activated Partial Thrombo Time 32.7 Seconds (26.0-36.0); INR 1.2
[2019-11-02] MEDS: Pantoprazole 40 MG VIAL IVP SCH ×2 (05:10→18:18)
[2019-11-02] MEDS ORDERED: Potassium Chloride 40 MEQ, Lidocaine 1% 2 ML in 0.9 % Sodium Chloride 500 ML IVPB ONE (07:56)
[2019-11-02] MEDS: Metoprolol XL (24 HR) Succ 50 MG TAB.ER.24H PO SCH (08:44)
[2019-11-02] MEDS: Vancomycin 500 MG in 0.9 % Sodium Chloride Mini Bag 100 ML IVPB SCH (15:52)
[2019-11-02] MEDS: Mirtazapine 15 MG TABLET PO SCH (19:59)
[2019-11-03] MEDS: Piperacillin/Tazobactam 3.375 GM in 0.9 % Sodium Chloride Mini Bag 100 ML IVPB SCH (00:05)
[2019-11-03] MEDS: Pantoprazole 40 MG VIAL IVP SCH ×2 (05:09→18:19)
[2019-11-03] MEDS ORDERED: Dextrose Gel 15 GM/37.5 ML TUBE PO PRN ×2 (08:07)
[2019-11-03] MEDS ORDERED: D5% in Water 1,000 ML IVC PRN (08:07)
[2019-11-03] MEDS ORDERED: *HR* Dextrose 50 % in Water (Vial) 50 ML VIAL IVP PRN (08:07)
[2019-11-03 08:37] LABS: Basophils % 0.3 %; Eosinophils # 0.2 K/mcL (0.0-0.6); Eosinophils % 2.8 %; Hematocrit 34.7 % (35.3-44.9); Hemoglobin 10.8 g/dL (11.5-15.4); Immature Granulocytes % 0.4 % (0-4); Lymphocytes # 0.6 K/mcL (0.6-4.6); Lymphocytes % 6.9 %; Mean Corpuscular HGB Conc 31.1 g/dL (31.6-35.5); Mean Corpuscular Hemoglobin 28.6 pg (28.0-33.3); Mean Platelet Volume 9.9 fL (9.4-12.4); Monocytes # 0.7 K/mcL (0.0-1.3); Monocytes % 8.4 %; Neutrophils # 6.5 K/mcL (1.6-8.9); Platelet Count 300 K/mcL (140-400); Red Blood Count 3.77 M/mcL (3.82-4.97); Red Cell Distribution Width 15.9 % (11.5-14.5); Segmented Neutrophils % 81.2 %
[2019-11-03 08:57] LABS: Alanine Aminotransferase 13 Units/L (7-52); Albumin 2.9 g/dL (3.5-5.7); Alkaline Phosphatase 69 Units/L (34-104); Aspartate Amino Transferase 15 Units/L (13-39); BUN/Creatinine Ratio 17 (6-26); Bilirubin,Total 1.1 mg/dL (0.3-1.0); Blood Urea Nitrogen 12 mg/dL (8-23); Calcium 8.1 mg/dL (8.6-10.3); Carbon Dioxide 28 mEq/L (23-29); Chloride 109 mEq/L (98-107); Globulin 2.8 g/dL (2.4-3.5); Glucose 91 mg/dL (70-105); Osmolality,Calculated 297 (280-300); Sodium 144 mEq/L (136-145); Total Protein 5.7 g/dL (6.4-8.9); eGFR For African Americans > 60 (> 60); eGFR For Non-African Americans > 60 (> 60)
[2019-11-03] MEDS: lisinopriL 5 MG TABLET PO SCH (09:55)
[2019-11-03] MEDS: Lactobacillus 1 EACH CAP.SPRINK PO SCH (09:55)
[2019-11-03] MEDS: Cholecalciferol (D-3) 1,000 UNIT (25MCG) TABLET PO SCH (09:55)
[2019-11-03] MEDS: Folic Acid 1 MG TABLET PO SCH (09:55)
[2019-11-03] MEDS: Cyanocobalamin (B-12) 1,000 MCG TABLET PO SCH (09:55)
[2019-11-03] MEDS: Furosemide 40 MG TABLET PO SCH (09:55)
[2019-11-03] MEDS: cefTRIAXone 1,000 MG in Water for inj. (sterile) 10 ML IVP SCH (09:55)
[2019-11-03] MEDS: Metoprolol XL (24 HR) Succ 50 MG TAB.ER.24H PO SCH (09:55)
[2019-11-03] MEDS ORDERED: Leptospermum Honey Paste 1 APPL/5 ML MLS TP SCH (12:15)
[2019-11-03] MEDS: Insulin LISPRO 300 UNITS/3 ML VIAL SQ SCH ×2 (12:43→17:52)
[2019-11-03] MEDS ORDERED: Lidocaine -MPF 2% 2 ML VIAL ONE (14:23)
[2019-11-03] MEDS: Leptospermum Honey Paste 44 ML TUBE TP SCH (15:00)
[2019-11-03] MEDS: Vancomycin 500 MG in 0.9 % Sodium Chloride Mini Bag 100 ML IVPB SCH (15:01)
[2019-11-03] MEDS: Mirtazapine 15 MG TABLET PO SCH (19:43)
[2019-11-04] MEDS: Insulin LISPRO 300 UNITS/3 ML VIAL SQ SCH ×4 (00:12→18:20)
[2019-11-04] MEDS: Potassium Chloride 20 MEQ in D5% in Water 1,000 ML IVC SCH (02:58)
[2019-11-04 03:50] LABS: Basophils # 0.1 K/mcL (0.0-0.2); Basophils % 0.4 %; Eosinophils # 0.3 K/mcL (0.0-0.6); Eosinophils % 2.6 %; Hematocrit 39.9 % (35.3-44.9); Hemoglobin 12.3 g/dL (11.5-15.4); Immature Granulocytes % 0.7 % (0-4); Lymphocytes # 0.7 K/mcL (0.6-4.6); Lymphocytes % 5.8 %; Mean Corpuscular HGB Conc 30.8 g/dL (31.6-35.5); Mean Corpuscular Hemoglobin 28.5 pg (28.0-33.3); Mean Corpuscular Volume 92.6 fL (83.0-100.0); Mean Platelet Volume 10.4 fL (9.4-12.4); Monocytes # 0.7 K/mcL (0.0-1.3); Monocytes % 5.6 %; Neutrophils # 9.8 K/mcL (1.6-8.9); Platelet Count 305 K/mcL (140-400); Red Blood Count 4.31 M/mcL (3.82-4.97); Red Cell Distribution Width 16.1 % (11.5-14.5); Segmented Neutrophils % 84.9 %; White Blood Count 11.6 K/mcL (4.3-11.1)
[2019-11-04 04:49] LABS: BUN/Creatinine Ratio 21 (6-26); Blood Urea Nitrogen 13 mg/dL (8-23); Calcium 8.4 mg/dL (8.6-10.3); Carbon Dioxide 23 mEq/L (23-29); Chloride 106 mEq/L (98-107); Glucose 86 mg/dL (70-105); Magnesium 1.7 mg/dL (1.6-2.6); Osmolality,Calculated 289 (280-300); Phosphorous 2.9 mg/dL (2.7-4.5); Sodium 140 mEq/L (136-145); eGFR For African Americans > 60 (> 60); eGFR For Non-African Americans > 60 (> 60)
[2019-11-04] MEDS: Pantoprazole 40 MG VIAL IVP SCH (05:34)
[2019-11-04] MEDS: Furosemide 40 MG TABLET PO SCH (09:24)
[2019-11-04] MEDS: Metoprolol XL (24 HR) Succ 50 MG TAB.ER.24H PO SCH (09:24)
[2019-11-04] MEDS: cefTRIAXone 1,000 MG in Water for inj. (sterile) 10 ML IVP SCH (09:25)
[2019-11-04] MEDS: Lactobacillus 1 EACH CAP.SPRINK PO SCH (09:25)
[2019-11-04] MEDS: Sucralfate 1 GM TABLET PO SCH ×2 (09:25→17:15)
[2019-11-04] MEDS: Cyanocobalamin (B-12) 1,000 MCG TABLET PO SCH (09:25)
[2019-11-04] MEDS: Folic Acid 1 MG TABLET PO SCH (09:25)
[2019-11-04] MEDS: Cholecalciferol (D-3) 1,000 UNIT (25MCG) TABLET PO SCH (09:27)
[2019-11-04] MEDS: lisinopriL 5 MG TABLET PO SCH (09:27)
[2019-11-04] MEDS: Leptospermum Honey Paste 44 ML TUBE TP SCH (10:51)
[2019-11-04] MEDS ORDERED: Isovue-370 500 ML BOTTLE IVP ONE ×2 (13:49→17:55)
[2019-11-04] MEDS: Ampicillin 1,000 MG in 0.9 % Sodium Chloride Mini Bag 100 ML IVPB SCH ×2 (17:14→23:55)
[2019-11-04] MEDS: Mirtazapine 15 MG TABLET PO SCH (21:17)
[2019-11-05] MEDS: Insulin LISPRO 300 UNITS/3 ML VIAL SQ SCH ×3 (04:39→11:58)
[2019-11-05] MEDS: Ampicillin 1,000 MG in 0.9 % Sodium Chloride Mini Bag 100 ML IVPB SCH ×2 (05:12→09:57)
[2019-11-05] MEDS: Potassium Chloride 20 MEQ in D5% in Water 1,000 ML IVC SCH (07:31)
[2019-11-05] MEDS: Piperacillin/Tazobactam 3.375 GM in 0.9 % Sodium Chloride Mini Bag 100 ML IVPB SCH (07:31)
[2019-11-05] MEDS: Cholecalciferol (D-3) 1,000 UNIT (25MCG) TABLET PO SCH (09:58)
[2019-11-05] MEDS: Metoprolol XL (24 HR) Succ 50 MG TAB.ER.24H PO SCH (09:58)
[2019-11-05] MEDS: Sucralfate 1 GM TABLET PO SCH (09:58)
[2019-11-05] MEDS: Lactobacillus 1 EACH CAP.SPRINK PO SCH (09:58)
[2019-11-05] MEDS: lisinopriL 5 MG TABLET PO SCH (09:58)
[2019-11-05] MEDS: Folic Acid 1 MG TABLET PO SCH (09:58)
[2019-11-05] MEDS: Cyanocobalamin (B-12) 1,000 MCG TABLET PO SCH (09:58)
[2019-11-05] MEDS: Furosemide 40 MG TABLET PO SCH (09:58)
[2019-11-05] MEDS: Leptospermum Honey Paste 44 ML TUBE TP SCH (10:41)
[2019-11-05 10:51] VITALS: BP 119/44
[2019-11-08] MEDS ORDERED: Isovue-370 500 ML BOTTLE IVP ONE (12:40)
== END 2019-11-05 15:07 | disposition home or self-care (01) | DRG 811 ==
LOC: 3ANU → SUATTDRO 17:42
PROVIDERS: ADMIT Family Medicine; ATTEND Internal Medicine

== ENCOUNTER 2019-11-15 15:22 | Inpatient (IN) ==
[2019-11-15] MEDS ORDERED: Clindamycin 600 MG/50 ML 600 MG/50 ML IV.SOLN IVPB STA (16:19)
[2019-11-15 17:21] LABS: Bacteria,Urine Few per hpf (None-Few); Bilirubin,Urine Negative (Negative); Blood,Urine Small (Negative); Budding Yeast,Urine Few per hpf (None Seen); Clarity,Urine Turbid (Clear); Color,Urine Light-Yellow (Yellow); Glucose,Urine (UA) Normal (Normal); Granular Casts,Urine Few per lpf (None Seen); Hyaline Casts,Urine Moderate per lpf (None Seen); Ketones,Urine Negative (Negative); Leukocyte Esterase,Urine Large (Negative); Mucus,Urine Few per lpf (None-Few); Nitrite,Urine Negative (Negative); Protein,Urine 50 mg/dL (Neg-Trace); RBC,Urine 15-30 per hpf (0-3); Specific Gravity,Urine 1.011 (1.010-1.025); Squamous Epithelial Cell,Urine Few per hpf (None-Few); Urobilinogen,Urine Normal (Normal); WBC,Urine TNTC per hpf (0-3)
[2019-11-15 18:00] LABS: Basophils % 0.3 %; Eosinophils # 0.1 K/mcL (0.0-0.6); Eosinophils % 0.7 %; Hematocrit 29.2 % (35.3-44.9); Hemoglobin 9.4 g/dL (11.5-15.4); Immature Granulocytes % 0.4 % (0-4); Lymphocytes # 0.6 K/mcL (0.6-4.6); Lymphocytes % 5.1 %; Mean Corpuscular HGB Conc 32.2 g/dL (31.6-35.5); Mean Corpuscular Hemoglobin 28.5 pg (28.0-33.3); Mean Corpuscular Volume 88.5 fL (83.0-100.0); Mean Platelet Volume 11.6 fL (9.4-12.4); Monocytes # 0.9 K/mcL (0.0-1.3); Neutrophils # 9.4 K/mcL (1.6-8.9); Platelet Count 358 K/mcL (140-400); Red Cell Distribution Width 16.1 % (11.5-14.5); Segmented Neutrophils % 85.5 %; White Blood Count 10.9 K/mcL (4.3-11.1)
[2019-11-15 18:08] LABS: Activated Partial Thrombo Time 47.1 Seconds (26.0-36.0); INR 1.3; Prothrombin Time 15.2 Seconds (9.4-12.1)
[2019-11-15] MEDS ORDERED: cefTRIAXone 1,000 MG in Water for inj. (sterile) 10 ML IVP ONE (18:14)
[2019-11-15] MEDS ORDERED: Fluconazole 150 MG TABLET PO ONE (18:15)
[2019-11-15 18:18] LABS: Bilirubin,Total 0.7 mg/dL (0.3-1.0); Calcium 8.6 mg/dL (8.6-10.3); Globulin 3.1 g/dL (2.4-3.5); Potassium 2.7 mEq/L (3.5-5.1); Total Protein 6.1 g/dL (6.4-8.9)
[2019-11-15] MEDS ORDERED: 0.9 % Sodium Chloride 1,000 ML IV ONE (18:33)
[2019-11-15] MEDS ORDERED: Ondansetron 4 MG/2 ML VIAL IVP PRN (20:42)
[2019-11-15] MEDS ORDERED: Naloxone 0.4 MG/ML INJ IVP PRN (20:42)
[2019-11-15] MEDS ORDERED: 0.9 % Sodium Chloride 1,000 ML IVC SCH (20:45)
[2019-11-16] MEDS: Piperacillin/Tazobactam 3.375 GM in 0.9 % Sodium Chloride Mini Bag 100 ML IVPB SCH ×3 (00:14→23:48)
[2019-11-16] MEDS ORDERED: *HR* Metoprolol 5 MG/5 ML VIAL IVP ONE (02:12)
[2019-11-16] MEDS ORDERED: Acetaminophen IV 500 MG/50 ML INFUS..BTL IVPB ONE (02:12)
[2019-11-16] MEDS ORDERED: Potassium Chloride 40 MEQ, Lidocaine 1% 2 ML in 0.9 % Sodium Chloride 500 ML IVPB ONE ×2 (04:47→09:25)
[2019-11-16] MEDS ORDERED: Pantoprazole 40 MG VIAL IVP SCH (06:00)
[2019-11-16 06:54] LABS: Basophils % 0.2 %; Eosinophils % 0.1 %; Hematocrit 26.4 % (35.3-44.9); Hemoglobin 8.6 g/dL (11.5-15.4); Immature Granulocytes % 0.6 % (0-4); Lymphocytes # 0.3 K/mcL (0.6-4.6); Lymphocytes % 1.4 %; Mean Corpuscular HGB Conc 32.6 g/dL (31.6-35.5); Mean Corpuscular Hemoglobin 28.4 pg (28.0-33.3); Mean Corpuscular Volume 87.1 fL (83.0-100.0); Mean Platelet Volume 11.5 fL (9.4-12.4); Monocytes % 5.4 %; Neutrophils # 17.7 K/mcL (1.6-8.9); Platelet Count 338 K/mcL (140-400); Red Blood Count 3.03 M/mcL (3.82-4.97); Red Cell Distribution Width 15.9 % (11.5-14.5); Segmented Neutrophils % 92.3 %; White Blood Count 19.2 K/mcL (4.3-11.1)
[2019-11-16 07:27] LABS: Albumin 2.7 g/dL (3.5-5.7); Bilirubin,Total 0.6 mg/dL (0.3-1.0); Calcium 7.7 mg/dL (8.6-10.3); Globulin 2.7 g/dL (2.4-3.5); Potassium 2.2 mEq/L (3.5-5.1); Total Protein 5.4 g/dL (6.4-8.9)
[2019-11-16] MEDS ORDERED: polyethylene glycoL 3350 17 GM POWD.PACK PO PRN (07:41)
[2019-11-16] MEDS ORDERED: Acetaminophen IV 1,000 MG/100 ML INFUS..BTL IVPB ONE (07:48)
[2019-11-16] MEDS: Metoprolol XL (24 HR) Succ 50 MG TAB.ER.24H PO SCH (08:15)
[2019-11-16] MEDS: Cyanocobalamin (B-12) 1,000 MCG TABLET PO SCH (08:16)
[2019-11-16] MEDS: Cholecalciferol (D-3) 1,000 UNIT (25MCG) TABLET PO SCH (08:16)
[2019-11-16] MEDS: Folic Acid 1 MG TABLET PO SCH (08:16)
[2019-11-16] MEDS ORDERED: Furosemide 40 MG TABLET PO SCH (09:00)
[2019-11-16] MEDS: Iron Sucrose Complex 250 MG in 0.9 % Sodium Chloride 250 ML IVPB SCH (10:32)
[2019-11-16] MEDS ORDERED: Leptospermum Honey GEL 1 APPL/5 ML MLS TP PRN (15:02)
[2019-11-16] MEDS: Sucralfate 1 GM TABLET PO SCH (17:27)
[2019-11-16] MEDS: *HR* Heparin 5,000 UNIT/ML VIAL SQ SCH (17:27)
[2019-11-16] MEDS ORDERED: Mirtazapine 15 MG TABLET PO SCH (21:00)
[2019-11-17] MEDS ORDERED: Acetaminophen IV 1,000 MG/100 ML INFUS..BTL IVPB ONE (01:35)
[2019-11-17 04:42] LABS: Basophils % 0.2 %; Eosinophils % 0.2 %; Hematocrit 21.9 % (35.3-44.9); Hemoglobin 7.3 g/dL (11.5-15.4); Immature Granulocytes % 0.7 % (0-4); Lymphocytes # 0.8 K/mcL (0.6-4.6); Lymphocytes % 6.2 %; Mean Corpuscular HGB Conc 33.3 g/dL (31.6-35.5); Mean Corpuscular Hemoglobin 29.2 pg (28.0-33.3); Mean Corpuscular Volume 87.6 fL (83.0-100.0); Monocytes # 0.9 K/mcL (0.0-1.3); Neutrophils # 10.5 K/mcL (1.6-8.9); Platelet Count 241 K/mcL (140-400); Red Cell Distribution Width 15.9 % (11.5-14.5); Segmented Neutrophils % 85.7 %; White Blood Count 12.3 K/mcL (4.3-11.1)
[2019-11-17 05:00] LABS: Calcium 7.5 mg/dL (8.6-10.3); Potassium 3.4 mEq/L (3.5-5.1)
[2019-11-17] MEDS: *HR* Heparin 5,000 UNIT/ML VIAL SQ SCH (06:10)
[2019-11-17] MEDS: Cyanocobalamin (B-12) 1,000 MCG TABLET PO SCH (07:41)
[2019-11-17] MEDS: Folic Acid 1 MG TABLET PO SCH (07:41)
[2019-11-17] MEDS: Sucralfate 1 GM TABLET PO SCH ×2 (07:41→16:23)
[2019-11-17] MEDS: Cholecalciferol (D-3) 1,000 UNIT (25MCG) TABLET PO SCH (07:41)
[2019-11-17] MEDS: Metoprolol XL (24 HR) Succ 50 MG TAB.ER.24H PO SCH (07:51)
[2019-11-17] MEDS: Iron Sucrose Complex 250 MG in 0.9 % Sodium Chloride 250 ML IVPB SCH (07:51)
[2019-11-17] MEDS ORDERED: Ropivacaine/PF 0.5% 30 ML VIAL ONE (08:48)
[2019-11-17] MEDS ORDERED: *HR* FentaNYL (PF) 100 MCG/2 ML VIAL ONE (08:50)
[2019-11-17] MEDS ORDERED: Lidocaine -MPF 2% 2 ML VIAL ONE (08:50)
[2019-11-17] MEDS ORDERED: *HR* Midazolam HCl 2 MG/2 ML VIAL ONE (08:50)
[2019-11-17] MEDS ORDERED: *HR* Etomidate 40 MG/20 ML VIAL IVP ONE (08:52)
[2019-11-17] MEDS ORDERED: *HR* Propofol 200 MG/20 ML VIAL IVP ONE (08:52)
[2019-11-17] MEDS ORDERED: Vancomycin 1,000 MG VIAL ONE (09:15)
[2019-11-17] MEDS ORDERED: *HR* PHENYLEPHRINE 1,000 MCG/10 ML SYRINGE IVP ONE (10:42)
[2019-11-17] MEDS ORDERED: EPHEDrine 50 MG/ML VIAL ONE (11:08)
[2019-11-17] MEDS ORDERED: Albumin Human 5% 12.5 GM/250 ML IV.SOLN ONE (11:31)
[2019-11-17] MEDS: Piperacillin/Tazobactam 3.375 GM in 0.9 % Sodium Chloride Mini Bag 100 ML IVPB SCH ×2 (11:58→21:56)
[2019-11-17] MEDS ORDERED: Acetaminophen 325 MG TABLET PO PRN ×2 (14:45)
[2019-11-17] MEDS ORDERED: Naloxone 0.4 MG/ML INJ IVP PRN ×2 (14:45)
[2019-11-17] MEDS ORDERED: *HR* OxyCODONE Immed Rel 5 MG TABLET PO PRN ×2 (14:45)
[2019-11-17] MEDS ORDERED: *HR* HYDROcodone/Acet 5/325 mg TABLET PO PRN ×2 (14:45)
[2019-11-17] MEDS ORDERED: Ondansetron 4 MG/2 ML VIAL IVP PRN (14:45)
[2019-11-17] MEDS ORDERED: polyethylene glycoL 3350 17 GM POWD.PACK PO PRN (14:45)
[2019-11-17] MEDS ORDERED: 0.9 % Sodium Chloride 250 ML ONE (15:04)
[2019-11-17] MEDS: Mirtazapine 15 MG TABLET PO SCH (21:55)
[2019-11-18] MEDS: Piperacillin/Tazobactam 3.375 GM in 0.9 % Sodium Chloride Mini Bag 100 ML IVPB SCH ×4 (04:13→23:26)
[2019-11-18 06:00] LABS: Basophils % 0.2 %; Eosinophils # 0.1 K/mcL (0.0-0.6); Eosinophils % 0.5 %; Hematocrit 28.4 % (35.3-44.9); Hemoglobin 9.5 g/dL (11.5-15.4); Immature Granulocytes % 0.5 % (0-4); Lymphocytes # 0.4 K/mcL (0.6-4.6); Lymphocytes % 3.3 %; Mean Corpuscular HGB Conc 33.5 g/dL (31.6-35.5); Mean Corpuscular Hemoglobin 29.1 pg (28.0-33.3); Mean Corpuscular Volume 87.1 fL (83.0-100.0); Mean Platelet Volume 11.4 fL (9.4-12.4); Monocytes # 0.7 K/mcL (0.0-1.3); Monocytes % 6.6 %; Neutrophils # 9.9 K/mcL (1.6-8.9); Platelet Count 205 K/mcL (140-400); Red Blood Count 3.26 M/mcL (3.82-4.97); Red Cell Distribution Width 15.9 % (11.5-14.5); Segmented Neutrophils % 88.9 %; White Blood Count 11.1 K/mcL (4.3-11.1)
[2019-11-18 06:21] LABS: BUN/Creatinine Ratio 29 (6-26); Blood Urea Nitrogen 24 mg/dL (8-23); Calcium 7.4 mg/dL (8.6-10.3); Carbon Dioxide 24 mEq/L (23-29); Chloride 109 mEq/L (98-107); Glucose 98 mg/dL (70-105); Osmolality,Calculated 296 (280-300); Potassium 2.9 mEq/L (3.5-5.1); Sodium 141 mEq/L (136-145); eGFR For African Americans > 60 (> 60); eGFR For Non-African Americans > 60 (> 60)
[2019-11-18] MEDS: *HR* Heparin 5,000 UNIT/ML VIAL SQ SCH ×2 (06:31→16:59)
[2019-11-18] MEDS ORDERED: Potassium Chloride Elixir 20 MEQ/15 ML UDC PO ONE (07:56)
[2019-11-18] MEDS: Metoprolol XL (24 HR) Succ 50 MG TAB.ER.24H PO SCH (09:00)
[2019-11-18] MEDS: Cholecalciferol (D-3) 1,000 UNIT (25MCG) TABLET PO SCH (09:01)
[2019-11-18] MEDS: Sucralfate 1 GM TABLET PO SCH ×2 (09:02→15:35)
[2019-11-18] MEDS: Cyanocobalamin (B-12) 1,000 MCG TABLET PO SCH (09:02)
[2019-11-18] MEDS: Folic Acid 1 MG TABLET PO SCH (09:02)
[2019-11-18] MEDS: Leptospermum Honey Gel 44 ML TUBE TP PRN (09:07)
[2019-11-18] MEDS: Iron Sucrose Complex 250 MG in 0.9 % Sodium Chloride 250 ML IVPB SCH (10:44)
[2019-11-18] MEDS: Mirtazapine 15 MG TABLET PO SCH (20:01)
[2019-11-19 04:14] LABS: Hematocrit 27.2 % (35.3-44.9); Hemoglobin 8.7 g/dL (11.5-15.4); Mean Corpuscular Hemoglobin 27.7 pg (28.0-33.3); Mean Corpuscular Volume 86.6 fL (83.0-100.0); Platelet Count 215 K/mcL (140-400); Red Blood Count 3.14 M/mcL (3.82-4.97); White Blood Count 8.4 K/mcL (4.3-11.1)
[2019-11-19 04:29] LABS: BUN/Creatinine Ratio 21 (6-26); Blood Urea Nitrogen 16 mg/dL (8-23); Calcium 7.2 mg/dL (8.6-10.3); Carbon Dioxide 21 mEq/L (23-29); Chloride 115 mEq/L (98-107); Glucose 98 mg/dL (70-105); Osmolality,Calculated 295 (280-300); Potassium 3.7 mEq/L (3.5-5.1); Sodium 142 mEq/L (136-145); eGFR For African Americans > 60 (> 60); eGFR For Non-African Americans > 60 (> 60)
[2019-11-19] MEDS: *HR* Heparin 5,000 UNIT/ML VIAL SQ SCH ×2 (06:11→17:42)
[2019-11-19] MEDS: Piperacillin/Tazobactam 3.375 GM in 0.9 % Sodium Chloride Mini Bag 100 ML IVPB SCH ×3 (08:13→23:25)
[2019-11-19] MEDS: Sucralfate 1 GM TABLET PO SCH ×2 (08:15→15:24)
[2019-11-19] MEDS: Metoprolol XL (24 HR) Succ 50 MG TAB.ER.24H PO SCH (08:17)
[2019-11-19] MEDS: amLODIPine 5 MG TABLET PO SCH (08:18)
[2019-11-19] MEDS: Cholecalciferol (D-3) 1,000 UNIT (25MCG) TABLET PO SCH (08:19)
[2019-11-19] MEDS: Cyanocobalamin (B-12) 1,000 MCG TABLET PO SCH (08:19)
[2019-11-19] MEDS: Folic Acid 1 MG TABLET PO SCH (08:20)
[2019-11-19] MEDS: Iron Sucrose Complex 250 MG in 0.9 % Sodium Chloride 250 ML IVPB SCH ×2 (08:54→12:38)
[2019-11-19] MEDS: lisinopriL 5 MG TABLET PO SCH (09:00)
[2019-11-19] MEDS ORDERED: Aminoglycoside Consult 1 EACH MC ONE (15:35)
[2019-11-19] MEDS: Mirtazapine 15 MG TABLET PO SCH (21:56)
[2019-11-20 04:18] LABS: Hematocrit 26.5 % (35.3-44.9); Hemoglobin 8.6 g/dL (11.5-15.4); Mean Corpuscular HGB Conc 32.5 g/dL (31.6-35.5); Mean Corpuscular Hemoglobin 27.8 pg (28.0-33.3); Mean Corpuscular Volume 85.8 fL (83.0-100.0); Mean Platelet Volume 10.9 fL (9.4-12.4); Platelet Count 240 K/mcL (140-400); Red Blood Count 3.09 M/mcL (3.82-4.97); Red Cell Distribution Width 16.1 % (11.5-14.5); White Blood Count 8.9 K/mcL (4.3-11.1)
[2019-11-20 04:34] LABS: BUN/Creatinine Ratio 22 (6-26); Blood Urea Nitrogen 16 mg/dL (8-23); Calcium 7.3 mg/dL (8.6-10.3); Carbon Dioxide 20 mEq/L (23-29); Chloride 113 mEq/L (98-107); Glucose 115 mg/dL (70-105); Osmolality,Calculated 292 (280-300); Potassium 2.9 mEq/L (3.5-5.1); Sodium 140 mEq/L (136-145); eGFR For African Americans > 60 (> 60); eGFR For Non-African Americans > 60 (> 60)
[2019-11-20] MEDS: Metoprolol XL (24 HR) Succ 50 MG TAB.ER.24H PO SCH (04:55)
[2019-11-20] MEDS: *HR* Heparin 5,000 UNIT/ML VIAL SQ SCH ×2 (05:04→17:19)
[2019-11-20] MEDS ORDERED: Potassium Chloride 40 MEQ, Lidocaine 1% 2 ML in 0.9 % Sodium Chloride 500 ML IVPB ONE (06:22)
[2019-11-20] MEDS ORDERED: Potassium Chloride Elixir 20 MEQ/15 ML UDC PO ONE (07:27)
[2019-11-20 07:39] LABS: Magnesium 1.3 mg/dL (1.6-2.6)
[2019-11-20] MEDS: Piperacillin/Tazobactam 3.375 GM in 0.9 % Sodium Chloride Mini Bag 100 ML IVPB SCH ×3 (08:27→23:38)
[2019-11-20] MEDS: Sucralfate 1 GM TABLET PO SCH ×2 (08:28→17:16)
[2019-11-20] MEDS: Folic Acid 1 MG TABLET PO SCH (08:28)
[2019-11-20] MEDS: amLODIPine 5 MG TABLET PO SCH (08:28)
[2019-11-20] MEDS: lisinopriL 5 MG TABLET PO SCH (08:28)
[2019-11-20] MEDS: Cyanocobalamin (B-12) 1,000 MCG TABLET PO SCH (08:28)
[2019-11-20] MEDS: Cholecalciferol (D-3) 1,000 UNIT (25MCG) TABLET PO SCH (08:29)
[2019-11-20] MEDS: Lactobacillus 1 EACH CAP.SPRINK PO SCH (10:29)
[2019-11-20] MEDS: Vancomycin Oral Soln 125 MG/2.5 ML UDC PO SCH ×4 (10:29→23:37)
[2019-11-20] MEDS: Iron Sucrose Complex 250 MG in 0.9 % Sodium Chloride 250 ML IVPB SCH (13:01)
[2019-11-20] MEDS: Mirtazapine 15 MG TABLET PO SCH (23:37)
[2019-11-21 05:35] LABS: Hematocrit 29.5 % (35.3-44.9); Hemoglobin 9.6 g/dL (11.5-15.4); Mean Corpuscular HGB Conc 32.5 g/dL (31.6-35.5); Mean Corpuscular Hemoglobin 28.3 pg (28.0-33.3); Mean Platelet Volume 11.2 fL (9.4-12.4); Platelet Count 293 K/mcL (140-400); Red Blood Count 3.39 M/mcL (3.82-4.97); Red Cell Distribution Width 16.1 % (11.5-14.5); White Blood Count 9.5 K/mcL (4.3-11.1)
[2019-11-21] MEDS: *HR* Heparin 5,000 UNIT/ML VIAL SQ SCH ×2 (05:45→18:52)
[2019-11-21 06:02] LABS: BUN/Creatinine Ratio 26 (6-26); Blood Urea Nitrogen 19 mg/dL (8-23); Calcium 7.6 mg/dL (8.6-10.3); Carbon Dioxide 20 mEq/L (23-29); Chloride 115 mEq/L (98-107); Glucose 102 mg/dL (70-105); Magnesium 2.2 mg/dL (1.6-2.6); Osmolality,Calculated 292 (280-300); Potassium 3.9 mEq/L (3.5-5.1); Sodium 140 mEq/L (136-145); eGFR For African Americans > 60 (> 60); eGFR For Non-African Americans > 60 (> 60)
[2019-11-21] MEDS: Cholecalciferol (D-3) 1,000 UNIT (25MCG) TABLET PO SCH (08:26)
[2019-11-21] MEDS: Vancomycin Oral Soln 125 MG/2.5 ML UDC PO SCH ×4 (08:26→21:44)
[2019-11-21] MEDS: Sucralfate 1 GM TABLET PO SCH ×2 (08:27→16:22)
[2019-11-21] MEDS: Folic Acid 1 MG TABLET PO SCH (08:28)
[2019-11-21] MEDS: Cyanocobalamin (B-12) 1,000 MCG TABLET PO SCH (08:28)
[2019-11-21] MEDS: lisinopriL 5 MG TABLET PO SCH (08:28)
[2019-11-21] MEDS: Metoprolol XL (24 HR) Succ 50 MG TAB.ER.24H PO SCH (08:28)
[2019-11-21] MEDS: amLODIPine 5 MG TABLET PO SCH (08:29)
[2019-11-21] MEDS: Lactobacillus 1 EACH CAP.SPRINK PO SCH (08:29)
[2019-11-21] MEDS: Piperacillin/Tazobactam 3.375 GM in 0.9 % Sodium Chloride Mini Bag 100 ML IVPB SCH ×2 (08:39→16:22)
[2019-11-21] MEDS ORDERED: Metoprolol XL (24 HR) Succ 50 MG TAB.ER.24H PO ONE (13:31)
[2019-11-21] MEDS ORDERED: Isovue-370 500 ML BOTTLE IVP ONE (15:30)
[2019-11-21] MEDS ORDERED: *HR* Heparin 5,000 UNIT/ML VIAL IVP PRN ×2 (18:50)
[2019-11-21] MEDS ORDERED: Heparin 25,000 UNIT/250 ML D5W 25,000 UNIT/250 ML IV.SOLN IVC SCH (19:00)
[2019-11-21 20:09] LABS: Hematocrit 30.1 % (35.3-44.9); Hemoglobin 9.7 g/dL (11.5-15.4); Mean Corpuscular HGB Conc 32.2 g/dL (31.6-35.5); Mean Corpuscular Hemoglobin 28.1 pg (28.0-33.3); Mean Corpuscular Volume 87.2 fL (83.0-100.0); Mean Platelet Volume 10.8 fL (9.4-12.4); Platelet Count 322 K/mcL (140-400); Red Blood Count 3.45 M/mcL (3.82-4.97); Red Cell Distribution Width 16.3 % (11.5-14.5); White Blood Count 14.2 K/mcL (4.3-11.1)
[2019-11-21 20:25] LABS: Heparin anti-factor XA UFH < 0.04 IU/mL (0.30-0.70)
[2019-11-21 20:26] LABS: INR 1.1; Prothrombin Time 12.9 Seconds (9.4-12.1)
[2019-11-21] MEDS: Mirtazapine 15 MG TABLET PO SCH (21:43)
[2019-11-22] MEDS ORDERED: 0.9 % Sodium Chloride 500 ML ONE (00:15)
[2019-11-22] MEDS: Piperacillin/Tazobactam 3.375 GM in 0.9 % Sodium Chloride Mini Bag 100 ML IVPB SCH ×3 (00:31→17:58)
[2019-11-22 02:16] LABS: Hematocrit 28.1 % (35.3-44.9); Hemoglobin 9.4 g/dL (11.5-15.4); Mean Corpuscular HGB Conc 33.5 g/dL (31.6-35.5); Mean Corpuscular Hemoglobin 29.2 pg (28.0-33.3); Mean Corpuscular Volume 87.3 fL (83.0-100.0); Mean Platelet Volume 10.6 fL (9.4-12.4); Platelet Count 336 K/mcL (140-400); Red Blood Count 3.22 M/mcL (3.82-4.97); White Blood Count 11.6 K/mcL (4.3-11.1)
[2019-11-22 02:29] LABS: BUN/Creatinine Ratio 21 (6-26); Blood Urea Nitrogen 16 mg/dL (8-23); Calcium 7.1 mg/dL (8.6-10.3); Carbon Dioxide 18 mEq/L (23-29); Chloride 115 mEq/L (98-107); Glucose 105 mg/dL (70-105); Magnesium 1.9 mg/dL (1.6-2.6); Osmolality,Calculated 294 (280-300); Potassium 3.5 mEq/L (3.5-5.1); Sodium 141 mEq/L (136-145); eGFR For African Americans > 60 (> 60); eGFR For Non-African Americans > 60 (> 60)
[2019-11-22] MEDS ORDERED: *HR* Metoprolol 5 MG/5 ML VIAL IVP PRN (03:29)
[2019-11-22] MEDS: Cholecalciferol (D-3) 1,000 UNIT (25MCG) TABLET PO SCH (08:05)
[2019-11-22] MEDS: Folic Acid 1 MG TABLET PO SCH (08:05)
[2019-11-22] MEDS: Lactobacillus 1 EACH CAP.SPRINK PO SCH (08:05)
[2019-11-22] MEDS: Sucralfate 1 GM TABLET PO SCH ×2 (08:06→17:59)
[2019-11-22] MEDS: Cyanocobalamin (B-12) 1,000 MCG TABLET PO SCH (08:06)
[2019-11-22] MEDS: Metoprolol XL (24 HR) Succ 50 MG TAB.ER.24H PO SCH (08:06)
[2019-11-22] MEDS: Vancomycin Oral Soln 125 MG/2.5 ML UDC PO SCH ×4 (08:07→20:30)
[2019-11-22] MEDS: lisinopriL 5 MG TABLET PO SCH (08:08)
[2019-11-22] MEDS: amLODIPine 5 MG TABLET PO SCH (08:08)
[2019-11-22] MEDS: Furosemide 40 MG TABLET PO SCH (13:51)
[2019-11-22] MEDS: *HR* Rivaroxaban 15 MG TABLET PO SCH (17:59)
[2019-11-22] MEDS: Leptospermum Honey Gel 44 ML TUBE TP PRN (20:30)
[2019-11-22] MEDS: Mirtazapine 15 MG TABLET PO SCH (20:30)
[2019-11-23] MEDS: Piperacillin/Tazobactam 3.375 GM in 0.9 % Sodium Chloride Mini Bag 100 ML IVPB SCH ×2 (00:19→08:47)
[2019-11-23] MEDS: Leptospermum Honey Gel 44 ML TUBE TP PRN (04:03)
[2019-11-23] MEDS: Sucralfate 1 GM TABLET PO SCH (05:37)
[2019-11-23] MEDS: amLODIPine 5 MG TABLET PO SCH (08:36)
[2019-11-23] MEDS: Cyanocobalamin (B-12) 1,000 MCG TABLET PO SCH (08:37)
[2019-11-23] MEDS: Cholecalciferol (D-3) 1,000 UNIT (25MCG) TABLET PO SCH (08:37)
[2019-11-23] MEDS: *HR* Rivaroxaban 15 MG TABLET PO SCH (08:38)
[2019-11-23] MEDS: Furosemide 40 MG TABLET PO SCH (08:38)
[2019-11-23] MEDS: Metoprolol XL (24 HR) Succ 50 MG TAB.ER.24H PO SCH (08:38)
[2019-11-23] MEDS: Lactobacillus 1 EACH CAP.SPRINK PO SCH (08:39)
[2019-11-23] MEDS: Folic Acid 1 MG TABLET PO SCH (08:39)
[2019-11-23] MEDS: lisinopriL 5 MG TABLET PO SCH (08:39)
[2019-11-23] MEDS: Vancomycin Oral Soln 125 MG/2.5 ML UDC PO SCH (08:40)
[2019-11-23 08:42] VITALS: BP 129/70
== END 2019-11-23 11:00 | disposition home or self-care (01) | DRG 853 ==
LOC: 3ANU 15:22 → EMEROOARM 15:22 → SUATTDRO 19:00 → 3ANU 20:56
PROVIDERS: ADMIT Internal Medicine; ATTEND Internal Medicine